=== PATIENT | female | born 1960 | race Caucasian/White ===

== ENCOUNTER 2017-07-05 08:58 | Inpatient (IN) ==
--- NOTE | 2017-07-04 21:43 | Discharge Summary ---
<Oni Lenz - Last Filed: 07/07/17 06:44> Date of Encounter: 07/07/17 - Discharge Diagnosis (1) Morbid obesity with BMI of 50.0-59.9, adult Priority: Secondary Status: Chronic (2) Arthritis of knee, left Priority: Primary Status: Chronic (3) Status post total knee replacement, left Priority: Primary Status: Acute (4) DMII (diabetes mellitus, type 2) Priority: Secondary Status: Chronic Qualifiers: Diabetes mellitus complication status: with unspecified complications Diabetes mellitus halfway insulin use: unspecified halfway insulin use status Qualified Code(s): E11.8 - Type 2 diabetes mellitus with unspecified complications (5) HTN (hypertension) Status: Chronic Qualifiers: Hypertension type: essential hypertension Qualified Code(s): I10 - Essential (primary) hypertension (6) Thyroid disease Priority: Secondary Status: Chronic (7) Kidney injury Priority: Secondary Status: Chronic Qualifiers: Encounter type: sequela Laterality: unspecified laterality Qualified Code (s): S37.009S - Unspecified injury of unspecified kidney, sequela (8) [id number] kidney injury Priority: Primary Status: Acute Qualifiers: Acute renal failure type: unspecified Chronic kidney disease stage: stage 2 (mild) Qualified Code(s): N17.9 - Acute kidney failure, unspecified; N18.2 - Chronic kidney disease, stage 2 (mild) - Discharge Medications Home Medications: Aspirin Enteric Coated [Aspirin EC] 325 mg PO DAILY #21 tablet. 07/04/17 [Rx] OxyCODONE Immed Rel [Roxicodone 5 MG] 5 - 10 mg PO Q6HR PRN #40 tablet 07/04/17 [Rx] Canagliflozin [Invokana] 100 mg PO HS 07/05/17 [History] Diclofenac Sodium [Voltaren] 75 mg PO BID 07/05/17 [History] Famotidine [Pepcid] 20 mg PO BID 07/05/17 [History] Glimepiride [Amaryl] 4 mg PO BID 07/05/17 [History] Insulin Glargine,Hum.rec.anlog [Basaglar Kwikpen U-100] 10 unit SQ HS 07/05/17 [ History] Levothyroxine [Synthroid] 100 mcg PO DAILY 07/05/17 [History] Losartan Potassium [Cozaar] 50 mg PO DAILY 07/05/17 [History] OxyCODONE Oral Soln [OxyCODONE ORAL SOLN] 5 mg PO Q6HR PRN #1 mls 07/05/17 [Rx] Torsemide 10 mg PO DAILY 07/05/17 [History] Allergies/Adverse Reactions: 3 Allergy/AdvReac Type Severity Reaction Status Date / Time codeine Allergy Nose Bleed Verified 07/05/17 10:25 Primary care physician: PCP NONE - Patient Status Disposition: Home Health Service - Discharge Instructions Follow Up With: Oni Lenz MD [Partnered Physician] - 08/04/17 4:05 pm Jocelyn Sanchez PAC [Physician Cell Tender] - 07/15/17 9:15 am (Second followup (staple removal) 07/23/17 @ 8:30am with Ko Sanchez) Additional Instructions: Discharge Instructions: Total Knee Replacement Please call [facility] ([phone]), your Primary Care Physician, or report to the Emergency Room if you have any of the following symptoms: Nausea, vomiting, fever greater that 101.5, swelling, chest pain, shortness of breath, increased pain/redness/drainage/odor for your incision site, numbness/ tingling, or any other concerning symptoms. ACTIVITY:Weight-bearing as tolerated. You may progress off support (crutches or walker) as tolerated. MEDICATIONS: Upon discharge resume your home medications. Take all the medications as prescribed. Take a stool softener if taking narcotic pain medications. Stool softeners are only effective if you drink enough fluids. Drink 6-8 glass of water or fluids a day, unless this is not allowed for another health problem. Despite using stool softeners, if you haven't had a bowel movement in 3 days, please switch to a gentle laxative. Gentle laxatives are sold over the counter. You should have a bowel movement within 24 hours, if not call the office. You will be discharged from the hospital with a prescription for pain medication. You are encouraged to decrease the use of narcotic pain medication as tolerated. Should you require a refill, please call the office. [facility] prescribes narcotic pain medication for only 4-6 weeks after surgery. If you require pain medication beyond this time period, you may be referred to your Primary Care Physician or to the Pain Clinic for further evaluation. Plan ahead for refills on pain medication as many narcotics either need to be picked up at the office or mailed. It is best to call 48-72 hours in advance of needing a prescription refill so you don't run out of medication. To help control the post-operative pain, you may take NSAIDs (Aleve,Advil, Motrin, Ibuprofen, Naprosyn) or Tylenol as prescribed on the bottle in addition to the pain medication. ANTICOAGULATION (blood thinners): Continue your Aspirin, Lovenox or Coumadin as prescribed to help prevent a blood clot in the leg or in the lungs. As long as your incision remains dry and you tolerate the NSAIDs (Aleve, Advil, Motrin, ibuprofen, naprosyn), it is OK to use the NSAIDS while you are taking your anticoagulation medication. Should your incision start to drain, stop the NSAID and contact our office. Common symptoms of blood clot in the legs include: localized pain, swelling, calf tenderness, redness or discoloration of the skin. Blood clot in the lung symptoms include: shortness of breath, rapid pulse, sweating, and chest pain that worsens with deep breathing, coughing up blood, lightheadedness, feelings of anxiety. If you experience any of these symptoms notify your physician immediately, go to the emergency room, or if having trouble breathing, call 911. WOUND CARE: Leave the dressing on for 7 to 10days. You may change the dressing if it becomes saturated greater than 50%. Do not get the dressing wet at anytime. Wash your hands with antibacterial soap, rinse and dry prior to any wound care. If you have carl the visiting nurse or rehab facility can remove the stapes 10-14 days after surgery and place steri-strips across the wound. Leave the steri-strips in place until they fall off on their won. You may let water from the shower run on top of the steri-strips. If you do not have a visiting nurse or rehab facility, you will need to return to the office at 10-14 days for the carl to be removed. If you have itching or redness around the dressing call the office. FOLLOW-UP: Please follow up with your surgeon in the orthopedic clinic in 4 weeks from the day of surgery. If you have carl that need to be removed, you will need to come back to the office in 10-14 days from the day of surgery. - Hospital Course Hospital course: Ms. Weiss is a 56 year old female - Time Spent with Patient Total time spent providing and/or coordinating discharge services: <Jocelyn Sanchez - Last Filed: 07/18/17 20:56> Date of Encounter: 07/18/17 Time of Encounter: 20:56 - Discharge Diagnosis (1) Arthritis of knee, left Priority: Primary Status: Chronic (2) Status post total knee replacement, left Priority: Primary Status: Acute (3) DMII (diabetes mellitus, type 2) Priority: Secondary Status: Chronic Qualifiers: Diabetes mellitus complication status: with unspecified complications Diabetes mellitus termite renewal inspector insulin use: unspecified halfway insulin use status Qualified Code(s): E11.8 - Type 2 diabetes mellitus with unspecified complications (4) HTN (hypertension) Priority: Secondary Status: Chronic Qualifiers: Hypertension type: essential hypertension Qualified Code(s): I10 - Essential (primary) hypertension (5) Obesity Priority: Secondary Status: Chronic Qualifiers: Obesity type: due to excess calories Obesity classification: adult class 3 (BMI >= 40) Serious obesity comorbidity presence: without serious comorbidity Body mass index: unspecified BMI Qualified Code(s): E66.09 - Other obesity due to excess calories (6) Thyroid disease Priority: Secondary Status: Chronic (7) Kidney injury Priority: Secondary Status: Chronic Qualifiers: Encounter type: sequela Laterality: unspecified laterality Qualified Code (s): S37.009S - Unspecified injury of unspecified kidney, sequela Primary care physician: PCP NONE - Hospital Course Hospital course: Ms. Weiss is a 56 year old female - Time Spent with Patient Total time spent providing and/or coordinating discharge services:
[2017-07-05] MEDS ORDERED: CeFAZolin Pre 3,000 MG/100 ML 3,000 MG/100 ML BAG IVPB ONE (09:29)
[2017-07-05] MEDS ORDERED: Lidocaine -MPF 1% 2 ML VIAL ID ONE (09:29)
[2017-07-05] MEDS ORDERED: Ringers Solution, Lactated 1,000 ML IVC SCH ×3 (09:30→14:34)
--- NOTE | 2017-07-05 09:46 | Anesthesia Evaluation PreOp ---
Date of Encounter: 07/05/17 Time of Encounter: 09:44 - Past History Planned Operation: Left Total Knee Artroplasty Cardiac History: Denies any Significant Hx Pulmonary History: Denies Any Significant HX FINANCIAL AID ADMINISTRATOR History: Denies Any Significant HX Other Medical History: Diabetes Type II, Thyroid (Hypothyroid) Anesthesia History: No Prior Anesthetic Complications, Past Anesthesia (Steve. [facility] , Gastric Bypass, Toe sx) : No Test: Negative Alcohol Use: none Drug use: none Medications and Allergies Aspirin Enteric Coated [Aspirin EC] 325 mg PO DAILY #21 tablet.dr 07/04/17 [Rx] OxyCODONE Immed Rel [Roxicodone 5 MG] 5 - 10 mg PO Q6HR PRN #40 tablet 07/04/17 [Rx] 3 Allergy/AdvReac Type Severity Reaction Status Date / Time codeine Allergy Nose Bleed Verified 06/29/17 10:25 - Meds/Allergy Pre-op Review Medications Reviewed: Yes Allergies Reviewed: Yes Anesthesia Results - Labs Laboratory Tests 06/29/17 06/29/17 06/29/17 10:38 10:38 10:38 WBC 7.5 Hgb 13.8 Hct 44.8 Plt Count 268 INR 1.0 Sodium 144 Potassium 4.6 H Chloride 107 Carbon Dioxide 28 BUN 40 H Creatinine 1.44 H Hemoglobin A1c 06/29/17 10:38 WBC Hgb Hct Plt Count INR Sodium Potassium Chloride Carbon Dioxide BUN Creatinine Hemoglobin A1c 7.4 H - Imaging EKG: image reviewed (SINUS RHYTHM LOW QRS VOLTAGE IN PRECORDIAL LEADS POSSIBLE ANTERIOR MYOCARDIAL INFARCTION, PROBABLY OLD) Anesthesia Exam O2 Sat Height 1.68 m Height 1.68 m Height 1.68 m Weight 154.221 kg Weight 154.221 kg Weight 154.221 kg O2 Sat by Pulse Oximetry 96 O2 Sat by Pulse Oximetry 96 Vital Signs Temp Pulse Resp BP Pulse Ox 98.2 F 90 18 146/73 96 07/05/17 09:34 07/05/17 09:34 07/05/17 09:34 07/05/17 09:34 07/05/17 09:34 Height: 5'6'' Weight: 340# NPO (# of Hours): > 8 hrs Pain Scale: 0 - HEENT Pupil (Motor): Pupils equal, EOMI Mallampati: III Teeth: Prosthesis (Upper Right posterior molar with loose Cap) Oral Opening: Greater than 3 - FINANCIAL AID ADMINISTRATOR LOC: Oriented FINANCIAL AID ADMINISTRATOR Motor: Normal RUE, Normal LUE, Normal RLE, Normal LLE, Normal Face FINANCIAL AID ADMINISTRATOR Sensory: Normal: RUE, LUE, RLE, LLE, Face - Cardiac Rhythm: Regular Murmur: None JVD: No Carotid Bruit: No - Pulmonary Breath Sounds: bilateral Clear Respiratory Effort: Symmetrical Anesthesia Assess/Plan ASA Score: 4 Modified [place] Scale for Level of Consciousness: Cooperative, oriented, and tranquil Anesthetic Plan: General, Regional (Left Fem. nerve Block) Autologous Blood: Yes Monitoring Plan: Standard Monitors Recovery Plan: PACU
[2017-07-05] MEDS ORDERED: *HR* FentaNYL (PF) 100 MCG/2 ML VIAL ONE ×2 (09:57→11:51)
[2017-07-05] MEDS ORDERED: *HR* Midazolam HCl 2 MG/2 ML VIAL ONE (09:57)
[2017-07-05] MEDS ORDERED: Dexamethasone 4 MG/ML VIAL ONE (09:57)
[2017-07-05] MEDS ORDERED: Lidocaine -MPF 2% 2 ML VIAL ONE (09:57)
[2017-07-05] MEDS ORDERED: Ondansetron 4 MG/2 ML VIAL ONE (09:57)
[2017-07-05] MEDS ORDERED: *HR* Propofol 200 MG/20 ML VIAL IVP ONE (09:58)
[2017-07-05] MEDS ORDERED: *HR* Meperidine 25 MG/ML SYRINGE IVP PRN (10:03)
[2017-07-05] MEDS ORDERED: *HR* HYDROmorphone (PF) 1 MG/ML SYRINGE IVP PRN ×2 (10:03→14:34)
[2017-07-05] MEDS ORDERED: Ondansetron 4 MG/2 ML VIAL IVP ONE (10:03)
[2017-07-05] MEDS ORDERED: *HR* Promethazine 25 MG/ML VIAL IVP PRN (10:03)
[2017-07-05] MEDS ORDERED: *HR* Labetalol 20 MG/4 ML SYRINGE IVP PRN (10:03)
[2017-07-05] MEDS ORDERED: Scopolamine Patch 1.5 MG PATCH.TD72 TD ONE (10:12)
--- NOTE | 2017-07-05 10:26 | History & Physical Report ---
Date of Encounter: 07/05/17 Time of Encounter: 10:25 24 Hour HP Update - Instructions Instructions: If the History and Physical is less than 30 days old and was completed prior to A.M. admission and or procedure and has NOT been updated on calendar day of procedure please complete this update prior to performing procedure. - Update Patient reports changes in Medical Condition: No Changes in examination, assessment, or condition: No Changes in Medication: No Preop tests/diagnostics Reviewed: Yes Surgery Remains Indicated: Yes Consent for Planned Operative Procedure(s) Verified: Yes - Pre-Operative Checklist Preoperative Checklist Indicated: No Prophylactic Antibiotic Ordered: Yes Is VTE Prophylaxis Indicated?: Yes
[2017-07-05] MEDS ORDERED: ROPIVACAINE HCL/PF 0.5% 30 ML VIAL ONE (10:53)
--- NOTE | 2017-07-05 11:18 | Anesthesia Procedures ---
Date of Encounter: 07/05/17 Time of Encounter: 11:11 Procedures: Anesthesia - Nerve Block Procedure Date: 07/05/17 Time: 11:11 Surgical Procedure: left total knee Checklist: Correct Patient Identifier, Correct procedure, History checked Correct side: Left Blood Thinner: No Monitor Applied: BP, Pulse Oximetry Supplemental Oxygen via Nasal Cannula (L/min): 2 Sedation: Versed (mg): 2 Sedation: Fentanyl (mcg): 100 Indication: Post Op Analgesia Pre-op Neuro Deficits: No Block Type: Femoral, Other (ipack) Catheter placed: No Sterile Technique: Yes Ultrasound used: Yes Anatomy identified: Yes Visual spread of Local: Yes Neuro Stimulation: Yes Nerve Stimulator Range: 0.2 - 0.4 mA Blood on Needle Aspiration: No Smooth Injection of Local: Yes Pain with Injection of Local: No Prep: Chlorhexadine Needle: 22 x 50 mm Stimuplex, 21 x 100 mm Stimuplex Local: Ropivacaine (30ml 0.5%), Other (30ml 0.25% rop ) Volume (cc): 60 Number of Attempts: 1 Complications: None/effective block Vitals: vss though out, block per request of surgeon.
--- NOTE | 2017-07-05 12:27 | Orthopedic Operative Note ---
Date of procedure: 07/05/17 Pre-op diagnosis: Knee arthritis left Post-op diagnosis: same Procedure: Procedure: Left Total knee replacement Estimated blood loss: 400 cc Hardware: Metal and polyethylene replacement: Biomet Femur: 75, 18 x 120 Tibia: 79, 12 x 40 Dee insert: 10 Patella: 37 Exam Under anesthesia: Loss full extension 10 degrees flexion 90 degrees Procedural Notes: Grade 4 arthritic changes medial compartment and patellofemoral joint. Operative procedure: The patient was brought to the operating room and placed on the operating room table. After general anesthesia was administered the operative knee was examined. Findings were noted in the exam under anesthesia. The operative extremity was prepped and draped in sterile surgical fashion. The patient received IV antibiotics prior to skin incision. A standard midline incision was made centered over the patella. The incision was made through the skin and subcutaneous tissue. A medial parapatellar tendon approach was performed. Care was taken to preserve tissue along the medial aspect of the patella. And to protect the patella tendon. The deep MCL was released off the medial tibia. The infra patella fat pad was excised. Knee was brought into flexion. Patient noted to have grade 4 arthritic changes medial compartment and patellofemoral joint. The entry hole was made for the intramedullary femoral guide. The guide was seated in 6 degrees of valgus. Anterior cut was made followed by the distal cut. The PCL the medial and the lateral menisci were excised. The tibia was subluxed forward. The entry hole was made for the intramedullary tibial guide. Guide was seated to resect 2 mm off the more abnormal side. The knee was brought into flexion the distal femur was sized to a 75 The femur was first reamed to a 18 x 120 The femoral guide was seated, the anterior cut was made followed by the posterior condylar cut, followed by the chamfer cuts. The finishing guide was seated the box cut was made. Trial had good fit and fixation The tibia was sized to a an 79 The tibia was first reamed Younger by 40 Trial reduction revealed full extension no varus valgus instability with the appropriate X insert. The patella was everted and cut was made at the level of the insertion of the quadriceps and patella tendon. The patella was sized to a 37 the guide was seated and the lug holes are drilled. Trial reduction revealed excellent patella tracking. All trial components were removed all bony surfaces were irrigated. Components were assembled on the back table. The femur was cemented first followed by the tibia. The 10 Dee was seated and secured. The knee was brought into full extension. The patella was cemented and held in place with the patellar holding clamp. After the cement had hardened, the knee sat for 2 minutes with a Betadine saline solution. The knee was then irrigated out with 2 L of pulse irrigation. The knee was closed by the PA. The extensor mechanism was closed with #2 FiberWire suture and #2 PDS suture. The subcutaneous tissue was then irrigated and closed deep with #1 PDS suture superficially with 0 PDS suture and skin was closed with skin carl The patient was then placed in a sterile dressing and a postoperative brace extubated and transferred to recovery room in stable condition. Anesthesia: JAREK Surgeon: Oni Lenz Geotechnical Field Technician: Lesvia Bone Condition: stable Disposition: PACU
--- NOTE | 2017-07-05 12:44 | Physician Discharge Referral ---
Home Health/Hosp Referral Info Transfer to: Home Health Provider in Charge Post Discharge: PCP - Diagnosis (1) Arthritis of knee, left Priority: Primary Status: Chronic (2) Status post total knee replacement, left Priority: Primary Status: Acute (3) DMII (diabetes mellitus, type 2) Priority: Secondary Status: Chronic (4) HTN (hypertension) Priority: Secondary Status: Chronic (5) Obesity Priority: Secondary Status: Chronic (6) Thyroid disease Priority: Secondary Status: Chronic (7) Kidney injury Priority: Secondary Status: Chronic (8) History of gastric bypass Priority: Secondary Status: Chronic - Respiratory Orders None Smoking Cessation: Smoking cessation has been advised. For more information, call the [place] Tobacco Quit Line at 4-227-CDCH-NOW. - Diet/Nutrition Diet/Nutrition Orders: Regular - Activity Activity Orders: Up ad hortencia, Ambulate, Walker - Services Needed Following services are medically necessary services: Nursing, Home Health Aide, Physical Therapy, Occupational Therapy Home Care Orders: Opsite placed. Keep dressing intact until first follow up appointment. If > 50% saturated,notify offfice, remove dressing and place appropriate dressing back in place. Dressing is water resistant, not water-proof. OK to shower, but do not get dressing wet. Zoë in place, to be removed at POD#14-16. PT/OT. WBAT to affected extremity. Follow Total Knee Precautions x 6 weeks. STAY IN KNEE IMMOBILIZER X 3 WEEKS, NO BENDING KNEE TO ALLOW WOUND TO HEAL. Plan to discontinue brace after first post-operative appointment. ICE and elevate extremity frequently throughout the day. Encourage ambulation exercises. - Transfer Medications Prescriptions: OxyCODONE Immed Rel [Roxicodone 5 MG] 5 - 10 mg PO Q6HR PRN #40 tablet PRN Reason: Pain Aspirin Enteric Coated [Aspirin EC] 325 mg PO DAILY #21 tablet. Home Medications: Aspirin Enteric Coated [Aspirin EC] 325 mg PO DAILY #21 tablet. 07/04/17 [Rx] OxyCODONE Immed Rel [Roxicodone 5 MG] 5 - 10 mg PO Q6HR PRN #40 tablet 07/04/17 [Rx] Canagliflozin [Invokana] 100 mg PO HS 07/05/17 [History] Diclofenac Sodium [Voltaren] 75 mg PO BID 07/05/17 [History] Famotidine [Pepcid] 20 mg PO BID 07/05/17 [History] Glimepiride [Amaryl] 4 mg PO BID 07/05/17 [History] Insulin Glargine,Hum.rec.anlog [Basaglar Kwikpen U-100] 10 unit SQ HS 07/05/17 [ History] Levothyroxine [Synthroid] 100 mcg PO DAILY 07/05/17 [History] Losartan Potassium [Cozaar] 50 mg PO DAILY 07/05/17 [History] Torsemide 10 mg PO DAILY 07/05/17 [History] Allergies/Adverse Reactions: 3 Allergy/AdvReac Type Severity Reaction Status Date / Time codeine Allergy Nose Bleed Verified 07/05/17 10:25 Certification: Further, I certify that my clinical findings support that this patient is homebound (i.e. absences from home require considerable and taxing effort and are for medical reasons or evangelical services or infrequently or short duration when for other reasons) because: Homebound Reason: Post-surgery restriction and or conditions limit ability to leave home Attestation: My signature below is to certify that this patient is under my care and that I, or nurse practitioner, or a physician's assistant infant toddler teacher working with me, has a face-to -face encounter with this patient.
[2017-07-05] MEDS ORDERED: Acetaminophen IV 1,000 MG/100 ML INFUS..BTL ONE (13:06)
[2017-07-05 13:35] LABS: Hematocrit 39.6 % (35.3-44.9); Hemoglobin 12.4 g/dL (11.5-15.4)
--- NOTE | 2017-07-05 13:56 | Anesthesia Evaluation Post Op ---
Date of Encounter: 07/05/17 Time of Encounter: 13:52 - Vital Signs Vital Signs: vss - Lungs Lungs: Clear Ascult./Percussion - Airway Airway: Non-obstructed - Cardiovascular Baseline Rhythm - Mental Status Mental Status: Asleep with brisk response to light stimulation (patient sleeping with no distress noted) - Pain Pain Scale used: Joey (Faces) (okay to send to floor when pain is tolerable) - Nausea Vomiting Nausea Vomiting: Not Present - Hydration Hydration: Ice chips - Discharge PostOp Status: Transfer Patient to floor (on pulse ox.)
[2017-07-05] MEDS ORDERED: *HR* Dextrose 50 % in Water (Syg) 50 ML SYRINGE IVP PRN (14:34)
[2017-07-05] MEDS ORDERED: Dextrose Gel 15 GM PO PRN ×2 (14:34)
[2017-07-05] MEDS ORDERED: D5% in Water 1,000 ML IVC PRN (14:34)
[2017-07-05] MEDS ORDERED: Ondansetron 4 MG/2 ML VIAL IVP PRN (14:34)
[2017-07-05] MEDS ORDERED: Naloxone 0.4 MG/ML INJ IVP PRN (14:34)
[2017-07-05] MEDS ORDERED: *HR* HYDROmorphone 2 MG/ML SYRINGE ONE ×2 (14:37)
[2017-07-05] MEDS ORDERED: Ketorolac 30 MG/ML VIAL ONE (14:38)
[2017-07-05] MEDS: ceFAZolin 3,000 MG in D5% in Water 100 ML IVPB SCH (17:15)
[2017-07-05] MEDS: *HR* Enoxaparin 30 MG/0.3 ML SYRINGE SQ SCH (17:15)
[2017-07-05] MEDS: Insulin LISPRO 300 UNITS/3 ML VIAL SQ SCH ×3 (17:16→21:47)
[2017-07-05] MEDS ORDERED: *HR* Enoxaparin 30 MG/0.3 ML SYRINGE SQ SCH (18:00)
[2017-07-05] MEDS ORDERED: Temazepam 15 MG CAPSULE PO PRN (21:00)
[2017-07-05] MEDS ORDERED: NON-FORMULARY MEDICATION 1 EACH EACH (Insulin Glargine,Hum.Rec.Anlog [Basaglar Kwikpen U-1 SQ SCH (21:00)
[2017-07-05] MEDS ORDERED: MOM Conc 10 ML UD.LIQ PO PRN (21:00)
[2017-07-05] MEDS ORDERED: Sennosides 8.6 MG TABLET PO PRN (21:00)
[2017-07-05] MEDS: *HR* Glimepiride 4 MG TABLET PO SCH (21:42)
[2017-07-05] MEDS: Famotidine 20 MG TABLET PO SCH (21:42)
[2017-07-05] MEDS: Diclofenac Sodium 75 MG TABLET PO SCH (21:42)
[2017-07-05] MEDS: (Canagliflozin [Invokana] 100 MG) PO SCH (21:45)
[2017-07-05] MEDS: *HR* OxyCODONE Immed Rel 5 MG TABLET PO PRN (21:53)
[2017-07-05] MEDS: Insulin DETEMIR 100 UNIT/ML X5UNITS SQ SCH (21:59)
[2017-07-06] MEDS: *HR* OxyCODONE Immed Rel 5 MG TABLET PO PRN ×2 (03:17→19:26)
[2017-07-06] MEDS: ceFAZolin 3,000 MG in D5% in Water 100 ML IVPB SCH (03:34)
[2017-07-06] MEDS: *HR* Enoxaparin 30 MG/0.3 ML SYRINGE SQ SCH ×2 (05:39→16:49)
--- NOTE | 2017-07-06 06:45 | Orthopedics Progress Note ---
Date of Encounter: 07/06/17 Time of Encounter: 06:45 - Assessment and Plan (1) Morbid obesity with BMI of 50.0-59.9, adult Current Visit: Yes Status: Chronic (2) Arthritis of knee, left Current Visit: Yes Status: Chronic (3) Status post total knee replacement, left Current Visit: Yes Status: Acute (4) DMII (diabetes mellitus, type 2) Current Visit: Yes Status: Chronic Qualifiers: Diabetes mellitus complication status: with unspecified complications Diabetes mellitus terminal system operator insulin use: unspecified terminal system operator insulin use status Qualified Code(s): E11.8 - Type 2 diabetes mellitus with unspecified complications (5) HTN (hypertension) Current Visit: Yes Status: Chronic Qualifiers: Hypertension type: essential hypertension Qualified Code(s): I10 - Essential (primary) hypertension (6) Thyroid disease Current Visit: Yes Status: Chronic (7) Kidney injury Current Visit: Yes Status: Chronic Qualifiers: Encounter type: sequela Laterality: unspecified laterality Qualified Code (s): S37.009S - Unspecified injury of unspecified kidney, sequela Subjective Interval history: Patient was seen this morning doing well without complaints. Afebrile vital signs stable. Operative extremity: Neurovascularly intact Dressing clean dry and intact Calves nontender Assessment and plan: Continue with postoperative care Hematocrit 39 Objective Vital signs: Vital Signs Temp Pulse Resp BP Pulse Ox 07/06/17 05:05 98.0 F 89 16 122/55 94 07/06/17 00:39 97.8 F 101 16 121/75 99 07/05/17 19:28 98.6 F 81 18 142/64 95 07/05/17 17:29 98.0 F 81 16 138/79 94 07/05/17 16:23 98.1 F 86 16 148/81 95 07/05/17 15:25 97.7 F 78 15 111/77 94 07/05/17 14:51 97.7 F 78 15 111/75 93 07/05/17 14:20 97.6 F 78 13 124/75 94 07/05/17 13:55 97.1 F L 73 16 137/71 94 07/05/17 13:45 97 F L 70 16 118/57 94 07/05/17 13:35 70 16 136/73 95 07/05/17 13:25 73 16 140/81 97 07/05/17 13:15 97.1 F L 76 20 123/64 98 07/05/17 11:10 76 16 125/64 94 07/05/17 10:50 81 18 155/70 97 07/05/17 10:48 98.2 F 90 18 146/73 96 07/05/17 09:42 98.2 F 90 18 146/73 96 07/05/17 09:34 98.2 F 90 18 146/73 96 Intake and Output 07/05/17 07/05/17 07/06/17 15:59 23:59 07:59 Intake Total 100 / 100 100 / 100 Output Total 500 / 500 0 / 0 Balance -400 / -400 100 / 100 0 / 0 Intake: IV Fluids 100 / 100 100 / 100 Ancef Premix 3,000 MG/100 100 / 100 ML 3,000 mg In 100 ml @ 200 mls/hr IVPB PREOP ONE Rx#:[id number] Ancef 3,000 MG In 100 / 100 Dextrose 5% 100 ML @ 200 mls/hr IVPB Q8HR ASHER Rx#: [id number] Output: Urine 0 / 0 Estimated Blood Loss 500 / 500 Other: # Voids 1 1 Weight 154.221 kg 154.78 kg Blood Glucose* 162 274 Patient Weight 07/06/17 23:59 Weight 154.78 kg - Labs CBC & BMP: 07/05/17 13:29 Labs: Abnormal lab results POC Glucose 237 (58-89) H 07/05/17 16:52 - VTE Documentation of Mechanical Device: Venous foot pump, device Consult Discharge Plan - Plan Referrals: NONE,PCP [Primary Care Provider] -
[2017-07-06 08:11] LABS: Calcium 8.5 mg/dL (8.6-10.8); Potassium 3.3 mEq/L (3.5-4.5)
[2017-07-06 08:12] LABS: Hematocrit 35.8 % (35.3-44.9); Hemoglobin 11.2 g/dL (11.5-15.4)
[2017-07-06] MEDS: Insulin LISPRO 300 UNITS/3 ML VIAL SQ SCH ×4 (09:14→22:01)
[2017-07-06] MEDS: Diclofenac Sodium 75 MG TABLET PO SCH ×2 (09:15→22:05)
[2017-07-06] MEDS: *HR* Glimepiride 4 MG TABLET PO SCH ×2 (09:15→22:06)
[2017-07-06] MEDS: Famotidine 20 MG TABLET PO SCH ×2 (09:15→22:06)
[2017-07-06] MEDS: Torsemide 20 MG TABLET PO SCH (09:15)
--- NOTE | 2017-07-06 12:01 | Event Note ---
Date of Encounter: 07/06/17 Time of Encounter: 11:58 PCR - Left TKR 07/06/17 - POD#1 Patient seen at bedside. Cormorbidities: DMII, Obesity - history of gastric bypass, HTN, Kidney function/ injury Labs: K 3.3 - monitoring Cre - 1.63 07/06/17 Baseline: 1.44 Baseline: GFR 38 Pain control: adequate - Allergy to Codeine - ok with Oxycodone *Requested liquid Oxycodone for discharge - this was printed and signed but I did inform patient she may have cost due to insurance. Participating in PT. TSCOPE brace, locked in extension x 2-4 weeks. No knee flexion to allow incision to heal* All questions and concerns addressed. Educated on use of incentive spirometer, ambulation, and hydration. Patient educated on post-operative restrictions and care. Addressed: Pain, Tscope restrictions 07/06/17 - Bolus given, encouraged oral hydration - continue to monitor labs and kidney function D/C plan: ECF - continuity placed.
[2017-07-06] MEDS ORDERED: 0.9 % Sodium Chloride 500 ML IVC ONE (12:08)
--- NOTE | 2017-07-06 17:23 | Physician Discharge Referral ---
ExtendedCare Referral Info Transfer To: ECF Provider in Charge after Transfer: PCP Institutional Level of Care: Skilled - Diagnosis (1) Arthritis of knee, left Priority: Primary Status: Chronic (2) Status post total knee replacement, left Priority: Primary Status: Acute (3) DMII (diabetes mellitus, type 2) Priority: Secondary Status: Chronic (4) HTN (hypertension) Priority: Secondary Status: Chronic (5) Obesity Priority: Secondary Status: Chronic (6) Thyroid disease Priority: Secondary Status: Chronic (7) Kidney injury Priority: Secondary Status: Chronic Expected Duration of Placement: < 30 days Prognosis: Good Aware of Diagnosis: Patient Aware of Prognosis: Patient - Transfer Medications Home Medications: Aspirin Enteric Coated [Aspirin EC] 325 mg PO DAILY #21 tablet. 07/04/17 [Rx] OxyCODONE Immed Rel [Roxicodone 5 MG] 5 - 10 mg PO Q6HR PRN #40 tablet 07/04/17 [Rx] Canagliflozin [Invokana] 100 mg PO HS 07/05/17 [History] Diclofenac Sodium [Voltaren] 75 mg PO BID 07/05/17 [History] Famotidine [Pepcid] 20 mg PO BID 07/05/17 [History] Glimepiride [Amaryl] 4 mg PO BID 07/05/17 [History] Insulin Glargine,Hum.rec.anlog [Basaglar Kwikpen U-100] 10 unit SQ HS 07/05/17 [ History] Levothyroxine [Synthroid] 100 mcg PO DAILY 07/05/17 [History] Losartan Potassium [Cozaar] 50 mg PO DAILY 07/05/17 [History] OxyCODONE Oral Soln [OxyCODONE ORAL SOLN] 5 mg PO Q6HR PRN #1 mls 07/05/17 [Rx] Torsemide 10 mg PO DAILY 07/05/17 [History] Allergies/Adverse Reactions: 3 Allergy/AdvReac Type Severity Reaction Status Date / Time codeine Allergy Nose Bleed Verified 07/05/17 10:25 - Respiratory Orders None Smoking Cessation: Smoking cessation has been advised. For more information, call the [place] Tobacco Quit Line at 8-385-FEYX-NOW. - Ancillary Orders May use pressure relief devices daily prn, May go on KIKA w/family/respon green party w /meds at nurse discretion PRN, May consult with Dentist, Pediatric Care Coordinator, Burglary Investigator PRN - Mobility Orders Chair, Ambulate - Rehabiliation Orders Rehab Potential: Good Rehab Orders: Sternal Precautions, ROM Exercises, Evaluation for Physical Therapy, Evaluation for Occupational Therapy Other: Wear knee immobilizer at all times x 3-4 weeks. No knee flexion WBAT - Treatments List/Other: Opsite dressing, leave intact until first post-operative visit. If dressing becomes >50% saturated, contact office, remove dressing and place appropriate dressing in its place. Do not allow for dressing to get wet. Zoë in place, plan to remove at post-operative day #14-16. Total Joint Precautions x 6 weeks Apply cold therapy wrap 3-6x/day for 20 minutes at a time. Encourage ambulation throughout the day Use Incentive spirometer 10x/hour. Elevate affected extremity above heart as tolerated. Brace: Wear TCOPE brace x 3-4 weeks, no knee flexion* WBAT. - Diet Orders Regular CERTIFICATION: I certify that the transfer of the above named patient to an Extended Care Facility is necessary for the continuing treatment of the diagnosis listed. The above information is true and accurate reflection of patient's current condition. Confidential - Redisclosure prohibited without a patient's written consent.
[2017-07-06] MEDS: Insulin DETEMIR 100 UNIT/ML X5UNITS SQ SCH (22:06)
[2017-07-06] MEDS: (Canagliflozin [Invokana] 100 MG) PO SCH (22:49)
[2017-07-07] MEDS: *HR* OxyCODONE Immed Rel 5 MG TABLET PO PRN ×3 (04:30→21:27)
[2017-07-07 06:34] LABS: Hematocrit 33.6 % (35.3-44.9); Hemoglobin 10.7 g/dL (11.5-15.4)
[2017-07-07 06:36] LABS: BUN/Creatinine Ratio 25 (6-26); Blood Urea Nitrogen 27 mg/dL (7-20); Calcium 8.6 mg/dL (8.6-10.8); Carbon Dioxide 27 mEq/L (19-29); Chloride 106 mEq/L (98-109); Glucose 154 mg/dL (70-99); Osmolality,Calculated 300 (280-300); Potassium 3.5 mEq/L (3.5-4.5); Sodium 141 mEq/L (136-145); eGFR For African Americans > 60 (> 60); eGFR For Non-African Americans 52 (> 60)
--- NOTE | 2017-07-07 06:46 | Orthopedics Progress Note ---
Date of Encounter: 07/07/17 Time of Encounter: 06:45 - Assessment and Plan (1) Morbid obesity with BMI of 50.0-59.9, adult Current Visit: Yes Status: Chronic (2) Arthritis of knee, left Current Visit: Yes Status: Chronic (3) Status post total knee replacement, left Current Visit: Yes Status: Acute (4) DMII (diabetes mellitus, type 2) Current Visit: Yes Status: Chronic Qualifiers: Diabetes mellitus complication status: with unspecified complications Diabetes mellitus intermodal truck driver insulin use: unspecified intermodal truck driver insulin use status Qualified Code(s): E11.8 - Type 2 diabetes mellitus with unspecified complications (5) HTN (hypertension) Current Visit: Yes Status: Chronic Qualifiers: Hypertension type: essential hypertension Qualified Code(s): I10 - Essential (primary) hypertension (6) Thyroid disease Current Visit: Yes Status: Chronic (7) Kidney injury Current Visit: Yes Status: Chronic Qualifiers: Encounter type: sequela Laterality: unspecified laterality Qualified Code (s): S37.009S - Unspecified injury of unspecified kidney, sequela (8) Arybg-je-bhenjmn kidney injury Current Visit: Yes Status: Acute Qualifiers: Acute renal failure type: unspecified Chronic kidney disease stage: stage 2 (mild) Qualified Code(s): N17.9 - Acute kidney failure, unspecified; N18.2 - Chronic kidney disease, stage 2 (mild) Subjective Interval history: Patient was seen this morning doing well without complaints. Afebrile vital signs stable. Operative extremity: Neurovascularly intact Dressing clean dry and intact Calves nontender Assessment and plan: Continue with postoperative care Hematocrit 33 creatinine 1.09 improving Objective Vital signs: Vital Signs Temp Pulse Resp BP Pulse Ox 07/07/17 04:05 97.8 F 93 20 129/77 93 07/07/17 00:56 98.3 F 88 16 128/63 93 07/06/17 20:38 98.1 F 77 18 124/60 95 07/06/17 19:01 98.5 F 84 18 116/70 94 07/06/17 15:51 98.4 F 79 15 126/68 97 07/06/17 12:07 99.6 F 87 15 103/61 96 07/06/17 07:46 98.1 F 87 16 134/68 97 Intake and Output 07/06/17 07/06/1717 15:59 23:59 07:59 Intake Total 218 / 218 480 / 480 Output Total 125 / 125 0 / 0 225 / 225 Balance 93 / 93 480 / 480 -225 / -225 Intake: Oral 218 / 218 480 / 480 Output: Urine 125 / 125 0 / 0 225 / 225 Other: Meal Lunch Percent of Meal Consumed 50% Blood Glucose* 153 168 - Labs CBC & BMP: 07/07/17 05:08 07/07/17 05:08 Labs: Abnormal lab results Hgb 10.7 g/dL (11.5-15.4) L 07/07/17 05:08 Hct 33.6 % (35.3-44.9) L 07/07/17 05:08 BUN 27 mg/dL (7-20) H 07/07/17 05:08 Est GFR (Non-Af Amer) 52 (> 60) L 07/07/17 05:08 Glucose 154 mg/dL (70-99) H 07/07/17 05:08 POC Glucose 124 (58-89) H 07/06/17 17:40 - VTE Documentation of Mechanical Device: Venous foot pump, device Consult Discharge Plan - Plan Additional Instructions: Discharge Instructions: Total Knee Replacement Please call [facility] ([phone]), your Primary Care Physician, or report to the Emergency Room if you have any of the following symptoms: Nausea, vomiting, fever greater that 101.5, swelling, chest pain, shortness of breath, increased pain/redness/drainage/odor for your incision site, numbness/ tingling, or any other concerning symptoms. ACTIVITY:Weight-bearing as tolerated. You may progress off support (crutches or walker) as tolerated. MEDICATIONS: Upon discharge resume your home medications. Take all the medications as prescribed. Take a stool softener if taking narcotic pain medications. Stool softeners are only effective if you drink enough fluids. Drink 6-8 glass of water or fluids a day, unless this is not allowed for another health problem. Despite using stool softeners, if you haven't had a bowel movement in 3 days, please switch to a gentle laxative. Gentle laxatives are sold over the counter. You should have a bowel movement within 24 hours, if not call the office. You will be discharged from the hospital with a prescription for pain medication. You are encouraged to decrease the use of narcotic pain medication as tolerated. Should you require a refill, please call the office. [facility] prescribes narcotic pain medication for only 4-6 weeks after surgery. If you require pain medication beyond this time period, you may be referred to your Primary Care Physician or to the Pain Clinic for further evaluation. Plan ahead for refills on pain medication as many narcotics either need to be picked up at the office or mailed. It is best to call 48-72 hours in advance of needing a prescription refill so you don't run out of medication. To help control the post-operative pain, you may take NSAIDs (Aleve,Advil, Motrin, Ibuprofen, Naprosyn) or Tylenol as prescribed on the bottle in addition to the pain medication. ANTICOAGULATION (blood thinners): Continue your Aspirin, Lovenox or Coumadin as prescribed to help prevent a blood clot in the leg or in the lungs. As long as your incision remains dry and you tolerate the NSAIDs (Aleve, Advil, Motrin, ibuprofen, naprosyn), it is OK to use the NSAIDS while you are taking your anticoagulation medication. Should your incision start to drain, stop the NSAID and contact our office. Common symptoms of blood clot in the legs include: localized pain, swelling, calf tenderness, redness or discoloration of the skin. Blood clot in the lung symptoms include: shortness of breath, rapid pulse, sweating, and chest pain that worsens with deep breathing, coughing up blood, lightheadedness, feelings of anxiety. If you experience any of these symptoms notify your physician immediately, go to the emergency room, or if having trouble breathing, call 911. WOUND CARE: Leave the dressing on for 7 to 10days. You may change the dressing if it becomes saturated greater than 50%. Do not get the dressing wet at anytime. Wash your hands with antibacterial soap, rinse and dry prior to any wound care. If you have carl the visiting nurse or rehab facility can remove the stapes 10-14 days after surgery and [address] steri-strips across the wound. Leave the steri-strips in place until they fall off on their won. You may let water from the shower run on top of the steri-strips. If you do not have a visiting nurse or rehab facility, you will need to return to the office at 10-14 days for the carl to be removed. If you have itching or redness around the dressing call the office. FOLLOW-UP: Please follow up with your surgeon in the orthopedic clinic in 4 weeks from the day of surgery. If you have carl that need to be removed, you will need to come back to the office in 10-14 days from the day of surgery. Referrals: Oni Lenz MD [Partnered Physician] - 08/04/17 4:05 pm Jocelyn Sanchez PAC [Physician Pie Maker] - 07/15/17 9:15 am (Second followup (staple removal) 07/23/17 @ 8:30am with Ko Sanchez)
[2017-07-07] MEDS: *HR* Enoxaparin 30 MG/0.3 ML SYRINGE SQ SCH ×2 (06:53→16:50)
[2017-07-07] MEDS: Diclofenac Sodium 75 MG TABLET PO SCH ×2 (08:22→21:27)
[2017-07-07] MEDS: Cholecalciferol (D-3) 1,000 UNIT TABLET PO SCH (08:22)
[2017-07-07] MEDS: Torsemide 20 MG TABLET PO SCH (08:22)
[2017-07-07] MEDS: *HR* Glimepiride 4 MG TABLET PO SCH ×2 (08:23→21:28)
[2017-07-07] MEDS: Famotidine 20 MG TABLET PO SCH ×2 (08:23→21:28)
[2017-07-07] MEDS: Insulin LISPRO 300 UNITS/3 ML VIAL SQ SCH ×4 (08:24→21:28)
--- NOTE | 2017-07-07 11:45 | Event Note ---
Date of Encounter: 07/07/17 Time of Encounter: 12:42 PCR - Left TKR 07/05/17 - POD#2 Patient seen at bedside. Cormorbidities: DMII, Obesity - history of gastric bypass, HTN, Kidney function/ injury Labs: K 3.3 - monitoring Cre - 1.63 07/06/17 Baseline: 1.44 Baseline: GFR 38 07/07/17 GFR 52 SCr 1.09 K 3.5 Pain control: adequate - Allergy to Codeine - ok with Oxycodone *Requested liquid Oxycodone for discharge - this was printed and signed but I did inform patient she may have cost due to insurance (MORRO ORONA-07/06/17). Participating in PT. Immobilizer - patient refusing Tscope stating it does not fit ---- locked in extension x 2-4 weeks. No knee flexion to allow incision to heal* All questions and concerns addressed. Educated on use of incentive spirometer, ambulation, and hydration. Patient educated on post-operative restrictions and care. Addressed: Pain, Tscope (Immobilizer) restrictions 07/06/17 - Bolus given, encouraged oral hydration - continue to monitor labs and kidney function -- Renal function improved today on labwork 07/07/17 D/C plan: ECF - continuity placed ---- patient states that she does not wish to go to ECF secondary to her not being able to participate in therapy secondary to Extension. In case of patient refusal or change in therapy plans will do HH continuity as well. Also will write for bedside commode (XL) for patient.
[2017-07-07] MEDS: (Canagliflozin [Invokana] 100 MG) PO SCH (21:28)
[2017-07-07] MEDS: Insulin DETEMIR 100 UNIT/ML X5UNITS SQ SCH (21:29)
[2017-07-08] MEDS: *HR* Enoxaparin 30 MG/0.3 ML SYRINGE SQ SCH (07:01)
[2017-07-08] MEDS: Insulin LISPRO 300 UNITS/3 ML VIAL SQ SCH ×2 (08:40→12:27)
[2017-07-08] MEDS: Torsemide 20 MG TABLET PO SCH (08:44)
[2017-07-08] MEDS: Famotidine 20 MG TABLET PO SCH (08:44)
[2017-07-08] MEDS: Diclofenac Sodium 75 MG TABLET PO SCH (08:44)
[2017-07-08] MEDS: Cholecalciferol (D-3) 1,000 UNIT TABLET PO SCH ×2 (08:44→08:45)
[2017-07-08] MEDS: *HR* Glimepiride 4 MG TABLET PO SCH (10:16)
[2017-07-08 11:41] VITALS: BP 105/63
--- NOTE | 2017-07-08 12:02 | Orthopedics Progress Note ---
Date of Encounter: 07/08/17 Time of Encounter: 08:00 - Assessment and Plan (1) Status post total knee replacement, left Current Visit: Yes Status: Acute Left TKR 07/05/17 - POD#3 Patient doing well, A&O in chair, Pain controlled. Vitals stable. Afebrile. H/H - Stable - - asymptomatic Plan: Continue in knee immobilizer brace x 2-3 weeks to allow incision to heal, no knee flexion. LLE: WBAT D/C to home today with HH. Patient has both liquid Oxycodone and tablets - she is to choose which one she wishes to be discharged on due to history of gastric bypass. 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 Qualified Code(s): E11.8 - Type 2 diabetes mellitus with unspecified complications (4) HTN (hypertension) Current Visit: Yes Status: Chronic Qualifiers: Hypertension type: essential hypertension Qualified Code(s): I10 - Essential (primary) hypertension (5) Obesity Current Visit: Yes Status: Chronic Qualifiers: Obesity type: due to excess calories Obesity classification: adult class 3 (BMI >= 40) Serious obesity comorbidity presence: without serious comorbidity Body mass index: unspecified BMI Qualified Code(s): E66.09 - Other obesity due to excess calories (6) Thyroid disease Current Visit: Yes Status: Chronic (7) Kidney injury Current Visit: Yes Status: Chronic Qualifiers: Encounter type: sequela Laterality: unspecified laterality Qualified Code (s): S37.009S - Unspecified injury of unspecified kidney, sequela Subjective Principal diagnosis: Left TKR 07/05/17 Interval history: Left TKR 07/05/17 - POD#3 Patient doing well, A&O in chair, Pain controlled. Vitals stable. Afebrile. H/H - Stable - - asymptomatic LLE: Minimal swelling, no erythema or ecchymosis noted. No calf tenderness or warmth noted. ROM limited due to immobilization NV intact distally. In knee immobilizer brace. Plan: Continue in knee immobilizer brace x 2-3 weeks to allow incision to heal, no knee flexion. LLE: WBAT D/C to home today with HH Objective Vital signs: Vital Signs Temp Pulse Resp BP Pulse Ox 07/08/17 09:54 98.7 F 97 16 105/63 95 07/08/17 06:56 98.9 F 94 16 109/57 95 07/08/17 04:06 98.6 F 90 18 107/54 94 07/07/17 23:16 98.2 F 91 18 120/64 94 07/07/17 20:25 98.5 F 87 18 101/62 97 07/07/17 15:15 98.1 F 95 16 115/70 95 Intake and Output 07/07/17 07/08/17 07/08/17 23:59 07:59 15:59 Intake Total 50 / 50 Balance 50 / 50 Intake: Oral 50 / 50 Other: # Voids 1 1 Weight 156.5 kg Blood Glucose* 178 131 Patient Weight 07/08/17 23:59 Weight 156.5 kg Incision: clean and dry - Labs CBC & BMP: 07/07/17 05:08 07/07/17 05:08 Labs: Abnormal lab results Hgb 10.7 g/dL (11.5-15.4) L 07/07/17 05:08 Hct 33.6 % (35.3-44.9) L 07/07/17 05:08 BUN 27 mg/dL (7-20) H 07/07/17 05:08 Est GFR (Non-Af Amer) 52 (> 60) L 07/07/17 05:08 Glucose 154 mg/dL (70-99) H 07/07/17 05:08 POC Glucose 131 (58-89) H 07/08/17 07:36 - VTE Documentation of Mechanical Device: Venous foot pump, device Consult Discharge Plan - Plan Additional Instructions: Discharge Instructions: Total Knee Replacement Please call [facility] ([phone]), your Primary Care Physician, or report to the Emergency Room if you have any of the following symptoms: Nausea, vomiting, fever greater that 101.5, swelling, chest pain, shortness of breath, increased pain/redness/drainage/odor for your incision site, numbness/ tingling, or any other concerning symptoms. ACTIVITY:Weight-bearing as tolerated. You may progress off support (crutches or walker) as tolerated. MEDICATIONS: Upon discharge resume your home medications. Take all the medications as prescribed. Take a stool softener if taking narcotic pain medications. Stool softeners are only effective if you drink enough fluids. Drink 6-8 glass of water or fluids a day, unless this is not allowed for another health problem. Despite using stool softeners, if you haven't had a bowel movement in 3 days, please switch to a gentle laxative. Gentle laxatives are sold over the counter. You should have a bowel movement within 24 hours, if not call the office. You will be discharged from the hospital with a prescription for pain medication. You are encouraged to decrease the use of narcotic pain medication as tolerated. Should you require a refill, please call the office. [facility] prescribes narcotic pain medication for only 4-6 weeks after surgery. If you require pain medication beyond this time period, you may be referred to your Primary Care Physician or to the Pain Clinic for further evaluation. Plan ahead for refills on pain medication as many narcotics either need to be picked up at the office or mailed. It is best to call 48-72 hours in advance of needing a prescription refill so you don't run out of medication. To help control the post-operative pain, you may take NSAIDs (Aleve,Advil, Motrin, Ibuprofen, Naprosyn) or Tylenol as prescribed on the bottle in addition to the pain medication. ANTICOAGULATION (blood thinners): Continue your Aspirin, Lovenox or Coumadin as prescribed to help prevent a blood clot in the leg or in the lungs. As long as your incision remains dry and you tolerate the NSAIDs (Aleve, Advil, Motrin, ibuprofen, naprosyn), it is OK to use the NSAIDS while you are taking your anticoagulation medication. Should your incision start to drain, stop the NSAID and contact our office. Common symptoms of blood clot in the legs include: localized pain, swelling, calf tenderness, redness or discoloration of the skin. Blood clot in the lung symptoms include: shortness of breath, rapid pulse, sweating, and chest pain that worsens with deep breathing, coughing up blood, lightheadedness, feelings of anxiety. If you experience any of these symptoms notify your physician immediately, go to the emergency room, or if having trouble breathing, call 911. WOUND CARE: Leave the dressing on for 7 to 10days. You may change the dressing if it becomes saturated greater than 50%. Do not get the dressing wet at anytime. Wash your hands with antibacterial soap, rinse and dry prior to any wound care. If you have carl the visiting nurse or rehab facility can remove the stapes 10-14 days after surgery [address] steri-strips across the wound. Leave the steri-strips in place until they fall off on their won. You may let water from the shower run on top of the steri-strips. If you do not have a visiting nurse or rehab facility, you will need to return to the office at 10-14 days for the carl to be removed. If you have itching or redness around the dressing call the office. FOLLOW-UP: Please follow up with your surgeon in the orthopedic clinic in 4 weeks from the day of surgery. If you have carl that need to be removed, you will need to come back to the office in 10-14 days from the day of surgery. Referrals: Oni Lenz MD [Partnered Physician] - 08/04/17 4:05 pm Jocelyn Sanchez PAC [Physician Proctologist] - 07/15/17 9:15 am (Second followup (staple removal) 07/23/17 @ 8:30am with Ko Sanchez)
== END 2017-07-08 18:11 | disposition home health service (06) | DRG 302 ==
LOC: SAMDAY 08:58 → 3NENU 15:21
PROVIDERS: ADMIT Orthopaedic Surgery; ATTEND Orthopaedic Surgery

== ENCOUNTER 2018-06-29 11:06 | Inpatient (IN) ==
--- NOTE | 2018-06-28 22:18 | Discharge Summary ---
<Oni Lenz - Last Filed: 07/01/18 09:51> Orders not resulted at time of discharge: Pending orders 06/29/18 09:21 US anesthesia pain block [US] Routine 06/29/18 15:17 Surgical Pathology [PTH] Routine Date of Encounter: 07/01/18 - Discharge Diagnosis (1) Chronic kidney disease, stage I Priority: Secondary Status: Chronic - Hospital Course Hospital course: Ms. Weiss is a 57 year old female - Time Spent with Patient Total time spent providing and/or coordinating discharge services: - Discharge Medications Home Medications: Canagliflozin [Invokana] 100 mg PO HS 07/05/17 [History] Diclofenac Sodium [Voltaren] 75 mg PO BID 07/05/17 [History] Glimepiride [Amaryl] 4 mg PO BID 07/05/17 [History] Levothyroxine [Synthroid] 100 mcg PO DAILY 07/05/17 [History] Losartan Potassium [Cozaar] 50 mg PO DAILY 07/05/17 [History] Torsemide 5 mg PO DAILY 07/05/17 [History] Insulin Glargine,Hum.rec.anlog [Basaglar Kwikpen U-100] 7 unit SQ DAILY [History] Allergies/Adverse Reactions: 3 Allergy/AdvReac Type Severity Reaction Status Date / Time codeine Allergy Nose Bleed Verified 06/29/18 12:07 Date of admission: 06/29/18 17:18 Primary care physician: PCP NONE Consults: 06/29/18 17:34 Consult to Occupational Therapy [CONS] Routine Comment: Evaluate, develop and implement POC Reason for Consult: post knee surgery Does patient have active BEDREST order?: No Is patient medically & hemodynamically stable?: Yes Consult to Orthopedic Navigator [CONS] [CONS] Routine Consult to Physical Therapy [CONS] Routine Comment: Evaluate, develop and impliment POC Reason for Consult: post knee surgery Does patient have active BEDREST order?: No Is patient medically & hemodynamically stable?: Yes Consult to End Trimmer [CONS] Routine Reason for SW Consult: post op joint replacement, discharge planning RT Post Op Consult [CONS] Routine Labs on day of discharge: Labs from last 24 hours 07/01/18 07/01/18 06/30/18 01:02 01:02 19:41 Hgb 11.0 L D Hct 35.1 L Sodium 139 Potassium 3.8 Chloride 105 Carbon Dioxide 25 BUN 29 H Creatinine 1.23 H Est GFR ( Amer) 54 L Est GFR (Non-Af Amer) 45 L BUN/Creatinine Ratio 24 Glucose 197 H POC Glucose 215 H Calculated Osmolality 299 Calcium 8.5 L 06/30/18 06/30/18 06/30/18 17:13 11:55 07:59 Hgb Hct Sodium Potassium Chloride Carbon Dioxide BUN Creatinine Est GFR ( Amer) Est GFR (Non-Af Amer) BUN/Creatinine Ratio Glucose POC Glucose 124 H 205 H 211 H Calculated Osmolality Calcium - Impressions ITS Impressions Knee X-Ray 06/29/18 00:01 IMPRESSION: Total knee arthroplasty without evidence of hardware complication. D/ / Rivas Forbes MD / Rivas Forbes MD Interpreting Provider: Rivas Forbes MD - Patient Status Disposition: Home Health Service Condition: Good - Discharge Instructions Follow Up With: NONE,PCP [Primary Care Provider] - <Jocelyn Sanchez - Last Filed: 07/01/18 12:34> Date of Encounter: 07/01/18 Time of Encounter: 12:31 - Discharge Diagnosis (1) Arthritis of knee, right Priority: Primary Status: Acute (2) Status post total knee replacement, right Priority: Primary Status: Acute (3) DMII (diabetes mellitus, type 2) Priority: Secondary Status: Chronic Qualifiers: Diabetes mellitus correction insulin use: unspecified correction insulin use status Diabetes mellitus complication status: with unspecified complications Qualified Code(s): E11.8 - Type 2 diabetes mellitus with unspecified complications (4) HTN (hypertension) Priority: Secondary Status: Chronic Qualifiers: Hypertension type: essential hypertension Qualified Code(s): I10 - Essential (primary) hypertension (5) History of gastric bypass Priority: Secondary Status: Chronic (6) Morbid obesity with BMI of 50.0-59.9, adult Priority: Secondary Status: Chronic (7) Thyroid disease Priority: Secondary Status: Chronic - Hospital Course Hospital course: Ms. Weiss is a 57 year old female, status post Right TKR 06/29 - Zoë in place . Patient had uneventful postoperative course. Stable for discharge. Patient seen at bedside, without complaints. A&O x 3 Afebrile, vital signs stable. Vital Signs Temp Pulse Resp BP Pulse Ox 07/01/18 11:44 98.2 F 91 17 125/63 95 07/01/18 09:58 95 07/01/18 07:23 98.7 F 85 16 135/73 95 06/30/18 20:47 98.8 F 87 16 115/68 96 06/30/18 17:14 98.6 F 87 18 113/68 95 06/30/18 14:42 97.8 F 86 17 101/66 98 Intake and Output 06/30/18 07/01/18 07/01/18 23:59 07:59 15:59 Other: # Voids 1 Blood Glucose* 215 204 207 Labs reviewed. H/H - stable, asymptomatic Abnormal Labs 06/29/18 06/29/18 06/30/18 11:33 13:58 00:54 Hgb Hct BUN 34 H Creatinine 1.26 H Est GFR ( Amer) 53 L Est GFR (Non-Af Amer) 44 L BUN/Creatinine Ratio 27 H Glucose 252 H POC Glucose 147 H 161 H Calculated Osmolality 304 H Calcium 06/30/18 06/30/18 06/30/18 07:59 11:55 17:13 Hgb Hct BUN Creatinine Est GFR ( Amer) Est GFR (Non-Af Amer) BUN/Creatinine Ratio Glucose POC Glucose 211 H 205 H 124 H Calculated Osmolality Calcium 06/30/18 07/01/18 07/01/18 19:41 01:02 01:02 Hgb 11.0 L D Hct 35.1 L BUN 29 H Creatinine 1.23 H Est GFR ( Amer) 54 L Est GFR (Non-Af Amer) 45 L BUN/Creatinine Ratio Glucose 197 H POC Glucose 215 H Calculated Osmolality Calcium 8.5 L Pain control: adequate Participating in PT. All questions and concerns addressed. Educated on use of incentive spirometer. Encouraged ambulation and proper hydration. Patient educated on post-operative restrictions and post-operative care. Assessment and plan: Continue with postoperative care Discharge plan: Home , discharge today - Time Spent with Patient Total time spent providing and/or coordinating discharge services: Primary care physician: PCP NONE Anticipated date of discharge: 07/01/18 - Patient Status Functional capacity at discharge: uses cane/walker Overall status at discharge: patient is progressing back to baseline
--- NOTE | 2018-06-29 10:45 | Anesthesia Evaluation PreOp ---
Date of Encounter: 06/29/18 Time of Encounter: 12:23 - Past History Planned Operation: ROBOTIC RIGHT TKA Cardiac History: HTN Other Medical History: Diabetes Type II, Thyroid, Other (MORBID OBESITY, BMI 53) Anesthesia History: No Prior Anesthetic Complications Alcohol Use: none Drug use: none Medications and Allergies Canagliflozin [Invokana] 100 mg PO HS 07/05/17 [History] Diclofenac Sodium [Voltaren] 75 mg PO BID 07/05/17 [History] Glimepiride [Amaryl] 4 mg PO BID 07/05/17 [History] Levothyroxine [Synthroid] 100 mcg PO DAILY 07/05/17 [History] Losartan Potassium [Cozaar] 50 mg PO DAILY 07/05/17 [History] Torsemide 5 mg PO DAILY 07/05/17 [History] Basaglar Kwikpen U-100 100 units 3XW 06/29/18 [History] 3 Allergy/AdvReac Type Severity Reaction Status Date / Time codeine Allergy Nose Bleed Verified 06/29/18 12:07 - Meds/Allergy Pre-op Review Medications Reviewed: Yes Allergies Reviewed: Yes Beta Blockers on Current Med List: No Anesthesia Results - Labs Laboratory Last Values WBC 8.2 K/mcL (4.3-11.1) 06/14/18 13:45 RBC 4.78 M/mcL (3.82-4.97) 06/14/18 13:45 Hgb 13.0 g/dL (11.5-15.4) 06/14/18 13:45 Hct 40.7 % (35.3-44.9) 06/14/18 13:45 MCV 85.1 fL (83.0-100.0) 06/14/18 13:45 MCH 27.2 pg (28.0-33.3) L 06/14/18 13:45 MCHC 31.9 g/dL (31.6-35.5) 06/14/18 13:45 RDW 15.2 % (11.5-14.5) H 06/14/18 13:45 Plt Count 268 K/mcL (140-400) 06/14/18 13:45 MPV 10.6 fL (9.4-12.4) 06/14/18 13:45 Immature Gran % 0.4 % (0-4) 06/14/18 13:45 Seg Neutrophils % 76.9 % 06/14/18 13:45 Lymphocytes % 14.1 % 06/14/18 13:45 Monocytes % 6.3 % 06/14/18 13:45 Eosinophils % 1.7 % 06/14/18 13:45 Basophils % 0.6 % 06/14/18 13:45 Neutrophils # 6.3 K/mcL (1.6-8.9) 06/14/18 13:45 Lymphocytes # 1.2 K/mcL (0.6-4.6) 06/14/18 13:45 Monocytes # 0.5 K/mcL (0.0-1.3) 06/14/18 13:45 Eosinophils # 0.1 K/mcL (0.0-0.6) 06/14/18 13:45 Basophils # 0.1 K/mcL (0.0-0.2) 06/14/18 13:45 PT 11.4 Seconds (9.4-12.1) 06/14/18 13:45 INR 1.0 06/14/18 13:45 APTT 35.2 Seconds (26.0-36.0) 06/14/18 13:45 Sodium 141 mEq/L (136-145) 06/14/18 13:45 Potassium 3.9 mEq/L (3.5-5.1) 06/14/18 13:45 Chloride 108 mEq/L (98-107) H 06/14/18 13:45 Carbon Dioxide 25 mEq/L (23-29) 06/14/18 13:45 BUN 34 mg/dL (6-20) H 06/14/18 13:45 Creatinine 1.32 mg/dL (0.60-1.20) H 06/14/18 13:45 Est GFR ( Amer) 50 (> 60) L 06/14/18 13:45 Est GFR (Non-Af Amer) 41 (> 60) L 06/14/18 13:45 BUN/Creatinine Ratio 26 (6-26) 06/14/18 13:45 Est Mean Plasma Glucose 192 mg/dl 06/14/18 13:45 Hemoglobin A1c 8.3 % (-5.6) H 06/14/18 13:45 Anesthesia Exam O2 Sat Height 1.73 m Height 1.73 m Weight 156.489 kg Weight 156.489 kg O2 Sat by Pulse Oximetry 97 Vital Signs/O2 Sat/Glucose, Most Recent Temp Pulse Resp BP Pulse Ox 98.1 F 90 18 153/84 97 06/29/18 11:36 06/29/18 11:36 06/29/18 11:36 06/29/18 11:36 06/29/18 11:36 Blood Glucose* 147 NPO (# of Hours): 8 - HEENT Mallampati: II Teeth: Normal (CROWN #1) Oral Opening: Greater than 3 - Cardiac Rhythm: Regular - Pulmonary Breath Sounds: bilateral Clear Respiratory Effort: Symmetrical Anesthesia Assess/Plan ASA Score: 3 Modified Yvonne Scale for Level of Consciousness: Cooperative, oriented, and tranquil Anesthetic Plan: General, Regional Monitoring Plan: Standard Monitors Recovery Plan: PACU Anes Supervising Prov Stmt: [employer] LIST NOT UPDATED THIS VISIT PATIENT'S CHART AND CURRENT MEDICATIONS REVIEWED Patient informed and consented. Risks, benefits, and alternatives discussed. Patient wishes to proceed. Surgical History GELA Carpal Tunnel Gastric Bypass 2004 LEFT TKR 07/05/17
[2018-06-29] MEDS ORDERED: CeFAZolin Syr 3,000MG/30 ML 3,000 MG/30 ML SYRINGE IVPB ONE (12:14)
[2018-06-29] MEDS ORDERED: Ringers Solution, Lactated 1,000 ML IVC SCH ×2 (12:15→17:34)
--- NOTE | 2018-06-29 12:17 | History & Physical Report ---
Date of Encounter: 06/29/18 Time of Encounter: 12:17 24 Hour HP Update - Instructions Instructions: If the History and Physical is less than 30 days old and was completed prior to A.M. admission and or procedure and has NOT been updated on calendar day of procedure please complete this update prior to performing procedure. - Update Patient reports changes in Medical Condition: No Changes in examination, assessment, or condition: No Changes in Medication: No Preop tests/diagnostics Reviewed: Yes Surgery Remains Indicated: Yes Consent for Planned Operative Procedure(s) Verified: Yes - Pre-Operative Checklist Preoperative Checklist Indicated: No Prophylactic Antibiotic Ordered: Yes Is VTE Prophylaxis Indicated?: Yes
[2018-06-29] MEDS ORDERED: *HR* FentaNYL (PF) 100 MCG/2 ML VIAL ONE ×2 (12:21→14:50)
[2018-06-29] MEDS ORDERED: Lidocaine -MPF 2% 2 ML VIAL ONE (12:21)
[2018-06-29] MEDS ORDERED: *HR* Propofol 200 MG/20 ML VIAL IVP ONE (12:21)
[2018-06-29] MEDS ORDERED: *HR* Midazolam HCl 2 MG/2 ML VIAL ONE (12:21)
[2018-06-29] MEDS ORDERED: Dexamethasone 4 MG/ML VIAL ONE ×2 (12:22→14:34)
[2018-06-29] MEDS ORDERED: Acetaminophen IV 500 MG/50 ML INFUS..BTL IVPB ONE (12:23)
[2018-06-29] MEDS ORDERED: Ondansetron 4 MG/2 ML VIAL ONE (12:29)
[2018-06-29] MEDS ORDERED: *HR* OxyCODONE Immed Rel 5 MG TABLET PO PRN (12:41)
[2018-06-29] MEDS ORDERED: *HR* Labetalol 20 MG/4 ML SYRINGE IVP PRN (12:41)
[2018-06-29] MEDS ORDERED: *HR* Promethazine 25 MG/ML VIAL IVP PRN (12:41)
[2018-06-29] MEDS ORDERED: Acetaminophen IV 1,000 MG/100 ML INFUS..BTL ONE (12:54)
[2018-06-29] MEDS ORDERED: ROPIVACAINE HCL/PF 0.5% 30 ML VIAL ONE (13:36)
[2018-06-29] MEDS ORDERED: Bupivacaine/Clonidine Syringe 1 EACH SYRINGE ONE (13:36)
[2018-06-29] MEDS ORDERED: KETAMINE HCL 50 MG/ML SYRINGE IV ONE (13:52)
[2018-06-29] MEDS ORDERED: Ethanol\\Acetic Acid\\Na Ace\\Ben 1,000 ML IRRIG.SOLN IR ONE (13:58)
--- NOTE | 2018-06-29 14:01 | Anesthesia Procedures ---
Date of Encounter: 06/29/18 Time of Encounter: 13:57 Procedures: Anesthesia - Nerve Block Procedure Date: 06/29/18 Time: 14:01 Pre-op Diagnosis: Right Knee Osteoathritis Surgical Procedure: Robotic Right Total Knee Arthroplasty Checklist: Correct Patient Identifier, Correct procedure, History checked Correct side: Right Blood Thinner: No Monitor Applied: BP, Pulse Oximetry Supplemental Oxygen via Nasal Cannula (L/min): 2 Sedation: Versed (mg): 2 Sedation: Fentanyl (mcg): 100 Indication: Post Op Analgesia Pre-op Neuro Deficits: No Block Type: Femoral (30ml Ropivacaine 0.5% given) Catheter placed: No Sterile Technique: Yes Ultrasound used: Yes Anatomy identified: Yes Visual spread of Local: Yes Neuro Stimulation: No Blood on Needle Aspiration: No Smooth Injection of Local: Yes Pain with Injection of Local: No Prep: Chlorhexadine Needle: 21 x 100 mm Stimuplex Local: Ropivacaine (30ml 0.5% Ropivacaine) Volume (cc): 30 Number of Attempts: 1 Complications: None/effective block Vitals: See Beside sedation RN monitor notes
[2018-06-29] MEDS ORDERED: *HR* PHENYLEPHRINE 1,000 MCG/10 ML SYRINGE IVP ONE (14:29)
--- NOTE | 2018-06-29 15:18 | Orthopedic Operative Note ---
Date of procedure: 06/29/18 Pre-op diagnosis: Right knee arthritis Post-op diagnosis: same (Morbid obesity) Procedure: Procedure: Right robotic-assisted Total knee replacement Estimated blood loss: 500 cc Hardware: Metal and polyethylene replacement. Millie Femur: 5 Tibia: 6 TS insert: 11 Patella: 39 Exam Under anesthesia: 8 degrees hyperextension 19 degree varus as calculated by the robot full flexion and no instability Procedural Notes: Grade 4 arthritic changes all 3 compartments. Operative procedure: The patient was brought to the operating room and placed on the operating room table. After general anesthesia was administered the operative knee was examined. Findings were noted in the exam under anesthesia. The operative extremity was prepped and draped in sterile surgical fashion. The patient received IV antibiotics prior to skin incision. A standard midline incision was made centered over the patella. The incision was made through the skin and subcutaneous tissue. A medial parapatellar tendon approach was performed. Care was taken to preserve tissue along the medial aspect of the patella. And to protect the patella tendon. The deep MCL was released off the medial tibia. The infra patella fat pad was excised. The patella was everted and cut was made at the level of the insertion of the quadriceps and patella tendon. The patella was sized to 39 the guide was seated and the lug holes are drilled. Knee was brought into flexion. Patient noted to have Steinmann pins were placed in the tibia and the femur for the tibial and femoral arrays respectively. Checkpoints were also placed in the tibia and the femur for calculation purposes. The knee including the femur and the tibial registered. Osteophytes, ACL and PCL were excised at this point. Extension and flexion were assessed with a valgus stress components were adjusted on the computer to balance the knee. Femoral cuts were made first with robotic assistance, these included the anterior cut posterior cuts chamfer cuts. Tibial cut was then performed with robotic assistance as well. Bone fragments were removed, as well as the medial and lateral meniscus. The size 5 femoral guide was seated box cut was made lug holes are drilled. The size 6 tibial tray was seated and prepared with the fin cutter. Trial reduction with the 11 TS Dee revealed extension of 0 degree and 12 degree varus full flexion. No varus valgus instability. Trial reduction revealed excellent patella tracking. All trial components were removed all bony surfaces were irrigated. The Tibia was seated followed by the femur, The Dee size 11 was seated and secured patella. Patient had similar findings for motion and stability. The knee was closed by the PA. The knee was then irrigated out with 2 L of pulse irrigation. The extensor mechanism was closed with #2 FiberWire suture and #2 PDS suture. The subcutaneous tissue was then irrigated and closed deep with #1 PDS suture superficially with 0 PDS suture and skin was closed with zip tie The patient was then placed in a sterile dressing and a postoperative brace extubated and transferred to recovery room in stable condition. Anesthesia: GETA Surgeon: Oni Lenz Was there an assistant professor of german present: No Estimated blood loss (cc): 500 Condition: stable Disposition: PACU
[2018-06-29] MEDS ORDERED: *HR* Morphine 10 MG/ML VIAL ONE (15:45)
[2018-06-29] MEDS: *HR* HYDROmorphone (PF) 1 MG/ML SYRINGE IVP PRN ×2 (16:07→16:17)
[2018-06-29 16:19] LABS: Hematocrit 40.5 % (35.3-44.9); Hemoglobin 12.6 g/dL (11.5-15.4)
--- NOTE | 2018-06-29 16:48 | Anesthesia Evaluation Post Op ---
Date of Encounter: 06/29/18 Time of Encounter: 16:47 - Vital Signs Vital Signs: Vital Signs/O2 Sat, Most Current Temp Pulse Resp BP Pulse Ox 97.8 F 66 16 131/69 95 06/29/18 16:23 06/29/18 16:33 06/29/18 16:33 06/29/18 16:33 06/29/18 16:33 - Lungs Lungs: Clear Ascult./Percussion - Airway Airway: Non-obstructed - Cardiovascular Regular Rate - Mental Status Mental Status: Asleep with brisk response to light stimulation - Pain Pain Scale: 8 (sleeping) Pain Scale used: Numeric (1 - 10) - Nausea Vomiting Nausea Vomiting: Not Present - Hydration Hydration: NPO, Has not voided - Discharge PostOp Status: Transfer Patient to floor
[2018-06-29] MEDS ORDERED: Dextrose Gel 15 GM/37.5 ML TUBE PO PRN ×2 (17:34)
[2018-06-29] MEDS ORDERED: traMADol 50 MG TABLET PO PRN (17:34)
[2018-06-29] MEDS ORDERED: Sennosides 8.6 MG TABLET PO PRN (17:34)
[2018-06-29] MEDS ORDERED: D5% in Water 1,000 ML IVC PRN (17:34)
[2018-06-29] MEDS ORDERED: Naloxone 0.4 MG/ML INJ IVP PRN (17:34)
[2018-06-29] MEDS ORDERED: MOM Conc 10 ML UD.LIQ PO PRN (17:34)
[2018-06-29] MEDS ORDERED: *HR* Dextrose 50 % in Water (Syg) 50 ML SYRINGE IVP PRN (17:34)
[2018-06-29] MEDS ORDERED: Temazepam 15 MG CAPSULE PO PRN (17:34)
[2018-06-29] MEDS ORDERED: *HR* Enoxaparin 30 MG/0.3 ML SYRINGE SQ SCH (18:00)
[2018-06-29] MEDS: *HR* OxyCODONE Immed Rel 5 MG TABLET PO PRN (18:17)
[2018-06-29] MEDS: *HR* Enoxaparin 30 MG/0.3 ML SYRINGE SQ SCH (18:17)
[2018-06-29] MEDS: Ondansetron 4 MG/2 ML VIAL IVP PRN ×2 (18:34→21:13)
[2018-06-29] MEDS: Insulin LISPRO 300 UNITS/3 ML VIAL SQ SCH ×2 (18:55→20:55)
[2018-06-29] MEDS: *HR* Glimepiride 4 MG TABLET PO SCH (20:55)
[2018-06-29] MEDS: (Canagliflozin [Invokana] 100 MG) PO SCH (20:56)
[2018-06-29] MEDS: ceFAZolin 3,000 MG in 0.9 % Sodium Chloride 100 ML IVPB SCH (23:47)
[2018-06-30 01:37] LABS: Hematocrit 40.2 % (35.3-44.9); Hemoglobin 12.6 g/dL (11.5-15.4)
[2018-06-30 01:43] LABS: Calcium 8.6 mg/dL (8.6-10.3); Potassium 3.9 mEq/L (3.5-5.1)
[2018-06-30] MEDS: *HR* OxyCODONE Immed Rel 5 MG TABLET PO PRN ×3 (02:52→22:04)
[2018-06-30] MEDS: ceFAZolin 3,000 MG in 0.9 % Sodium Chloride 100 ML IVPB SCH (06:22)
[2018-06-30] MEDS: *HR* OxyCODONE/APAP 5/325 TABLET PO PRN (06:23)
[2018-06-30] MEDS: *HR* Enoxaparin 30 MG/0.3 ML SYRINGE SQ SCH ×2 (06:24→16:53)
--- NOTE | 2018-06-30 08:02 | Orthopedics Progress Note ---
Date of Encounter: 06/30/18 Time of Encounter: 08:02 Subjective Interval history: Patient was seen this morning doing well without complaints. Afebrile vital signs stable. Operative extremity: Neurovascularly intact Dressing clean dry and intact Calves nontender Assessment and plan: Continue with postoperative care Objective Vital signs: Vital Signs Temp Pulse Resp BP Pulse Ox 06/30/18 07:33 98.3 F 90 16 125/75 98 06/29/18 22:54 97.5 F L 71 15 138/76 96 06/29/18 18:30 98.1 F 72 18 140/81 96 06/29/18 18:00 98 F 67 17 121/74 99 06/29/18 17:30 98 F 66 17 116/77 97 06/29/18 16:53 97.9 F 66 16 133/70 93 06/29/18 16:43 64 16 134/70 93 06/29/18 16:33 66 16 131/69 95 06/29/18 16:23 97.8 F 70 14 141/72 93 06/29/18 16:13 67 16 135/73 96 06/29/18 16:03 69 16 139/70 94 06/29/18 15:53 97.4 F L 64 16 129/72 99 06/29/18 13:48 74 15 131/68 94 06/29/18 13:33 86 15 148/72 97 06/29/18 11:36 98.1 F 90 18 153/84 97 Intake and Output 06/29/18 06/30/18 06/30/18 23:59 07:59 15:59 Intake Total 100 / 100 100 / 100 Output Total 500 / 500 Balance 100 / 100 -400 / -400 Intake: IV Fluids 100 / 100 Ancef 3,000 MG In 0.9 % Sodium 100 / 100 Chloride 100 ML @ 200 mls/hr IVPB Q8H [facility] Rx#:[id number] Oral 100 / 100 Output: Urine 500 / 500 Other: Blood Glucose* 259 211 - Labs CBC & BMP: 06/30/18 00:54 06/30/18 00:54 Labs: Abnormal lab results BUN 34 mg/dL (6-20) H 06/30/18 00:54 Creatinine 1.26 mg/dL (0.60-1.20) H 06/30/18 00:54 Est GFR ( Amer) 53 (> 60) L 06/30/18 00:54 Est GFR (Non-Af Amer) 44 (> 60) L 06/30/18 00:54 BUN/Creatinine Ratio 27 (6-26) H 06/30/18 00:54 Glucose 252 mg/dL (70-105) H 06/30/18 00:54 POC Glucose 161 mg/dL (70-99) H 06/29/18 13:58 Calculated Osmolality 304 (280-300) H 06/30/18 00:54 Consult Discharge Plan - Plan Referrals: NONE,PCP [Primary Care Provider] -
[2018-06-30] MEDS: *HR* Glimepiride 4 MG TABLET PO SCH ×2 (10:00→22:04)
[2018-06-30] MEDS: Torsemide 20 MG TABLET PO SCH (10:01)
[2018-06-30] MEDS: Insulin LISPRO 300 UNITS/3 ML VIAL SQ SCH ×4 (10:03→22:06)
--- NOTE | 2018-06-30 17:02 | Event Note ---
Date of Encounter: 06/30/18 Time of Encounter: 16:57 PCR - POD#1 - Right TKR, morbid obesity; carl in place. Patient seen at bedside, without complaints. A&O x 3 Afebrile, vital signs stable. Labs reviewed. H/H - stable, asymptomatic Pain control: adequate Participating in PT. All questions and concerns addressed. Educated on use of incentive spirometer. Encouraged ambulation and proper hydration. Patient educated on post-operative restrictions and post-operative care. Assessment and plan: Continue with postoperative care Discharge plan: Home with , discharge home tomorrow afternoon Vital Signs Temp Pulse Resp BP Pulse Ox 06/30/18 14:42 97.8 F 86 17 101/66 98 06/30/18 12:03 98.6 F 95 16 93/55 96 06/30/18 07:33 98.3 F 90 16 125/75 98 06/29/18 22:54 97.5 F L 71 15 138/76 96 06/29/18 18:30 98.1 F 72 18 140/81 96 06/29/18 18:00 98 F 67 17 121/74 99 06/29/18 17:30 98 F 66 17 116/77 97 Intake and Output 06/30/18 06/30/18 06/30/18 07:59 15:59 23:59 Intake Total 100 / 100 100 / 100 Output Total 500 / 500 200 / 200 Balance -400 / -400 -100 / -100 Intake: IV Fluids 100 / 100 Ancef 3,000 MG In 0.9 % Sodium 100 / 100 Chloride 100 ML @ 200 mls/hr IVPB Q8H [facility] Rx#:[id number] Oral 100 / 100 Output: Urine 500 / 500 200 / 200 Other: Blood Glucose* 206 Abnormal Labs, Last 24 hours 06/30/18 06/30/18 06/30/18 11:55 07:59 00:54 BUN 34 H Creatinine 1.26 H Est GFR ( Amer) 53 L Est GFR (Non-Af Amer) 44 L BUN/Creatinine Ratio 27 H Glucose 252 H POC Glucose 205 H 211 H Calculated Osmolality 304 H
--- NOTE | 2018-06-30 17:06 | Physician Discharge Referral ---
Home Health/Hosp Referral Info Transfer to: Home Health Attending Provider: Provider in Charge Post Discharge: PCP - Diagnosis (1) Arthritis of knee, right Priority: Primary Status: Acute (2) Status post total knee replacement, right Priority: Primary Status: Acute (3) DMII (diabetes mellitus, type 2) Priority: Secondary Status: Chronic (4) HTN (hypertension) Priority: Secondary Status: Chronic (5) History of gastric bypass Priority: Secondary Status: Chronic (6) Morbid obesity with BMI of 50.0-59.9, adult Priority: Secondary Status: Chronic (7) Thyroid disease Priority: Secondary Status: Chronic - Respiratory Orders None Smoking Cessation: Smoking cessation has been advised. For more information, call the [employer] Tobacco Quit Line at 6-677-DFIA-NOW. - Diet/Nutrition Diet/Nutrition Orders: Regular - Activity Activity Orders: Up ad hortencia, Ambulate, Walker - Services Needed Following services are medically necessary services: Nursing, Home Health Aide, Physical Therapy, Occupational Therapy Home Care Orders: Opsite dressing, leave intact until first post-operative visit. If dressing becomes >50% saturated, contact office, remove dressing and place appropriate dressing in its place. Do not allow for dressing to get wet. Zipline/Zoë in place, plan to remove at post-operative day #14-16. Total Joint Precautions x 6 weeks Apply cold therapy wrap 3-6x/day for 20 minutes at a time. Encourage ambulation throughout the day Use Incentive spirometer 10x/hour. Elevate affected extremity above heart as tolerated. Brace: Wear knee immobilizer at night until first post-operative appt. - Transfer Medications Home Medications: Canagliflozin [Invokana] 100 mg PO HS 07/05/17 [History] Diclofenac Sodium [Voltaren] 75 mg PO BID 07/05/17 [History] Glimepiride [Amaryl] 4 mg PO BID 07/05/17 [History] Levothyroxine [Synthroid] 100 mcg PO DAILY 07/05/17 [History] Losartan Potassium [Cozaar] 50 mg PO DAILY 07/05/17 [History] Torsemide 5 mg PO DAILY 07/05/17 [History] Insulin Glargine,Hum.rec.anlog [Basaglar Kwikpen U-100] 7 unit SQ DAILY [History] Allergies/Adverse Reactions: 3 Allergy/AdvReac Type Severity Reaction Status Date / Time codeine Allergy Nose Bleed Verified 06/29/18 12:07 Certification: Further, I certify that my clinical findings support that this patient is homebound (i.e. absences from home require considerable and taxing effort and are for medical reasons or hinduism services or infrequently or short duration when for other reasons) because: Homebound Reason: Post-surgery restriction and or conditions limit ability to leave home Attestation: My signature below is to certify that this patient is under my care and that I, or nurse practitioner, or a physician's assistant therapy aide working with me, has a face-to -face encounter with this patient.
[2018-07-01 01:58] LABS: Hematocrit 35.1 % (35.3-44.9)
[2018-07-01 02:08] LABS: Calcium 8.5 mg/dL (8.6-10.3); Potassium 3.8 mEq/L (3.5-5.1)
[2018-07-01] MEDS: (Canagliflozin [Invokana] 100 MG) PO SCH ×2 (02:19→20:56)
[2018-07-01] MEDS: *HR* OxyCODONE/APAP 5/325 TABLET PO PRN ×2 (05:50→10:05)
[2018-07-01] MEDS: *HR* Enoxaparin 30 MG/0.3 ML SYRINGE SQ SCH ×2 (05:50→17:15)
--- NOTE | 2018-07-01 09:05 | Orthopedics Progress Note ---
Date of Encounter: 07/01/18 Time of Encounter: 09:05 Subjective Interval history: Patient was seen this morning doing well without complaints. Afebrile vital signs stable. Operative extremity: Neurovascularly intact Dressing clean dry and intact Calves nontender Assessment and plan: Continue with postoperative care Objective Vital signs: Vital Signs Temp Pulse Resp BP Pulse Ox 07/01/18 07:23 98.7 F 85 16 135/73 95 06/30/18 20:47 98.8 F 87 16 115/68 96 06/30/18 17:14 98.6 F 87 18 113/68 95 06/30/18 14:42 97.8 F 86 17 101/66 98 06/30/18 12:03 98.6 F 95 16 93/55 96 Intake and Output 06/30/18 07/01/18 07/01/18 23:59 07:59 15:59 Other: # Voids 1 Blood Glucose* 215 204 - Labs CBC & BMP: 07/01/18 01:02 07/01/18 01:02 Labs: Abnormal lab results Hgb 11.0 g/dL (11.5-15.4) L D 07/01/18 01:02 Hct 35.1 % (35.3-44.9) L 07/01/18 01:02 BUN 29 mg/dL (6-20) H 07/01/18 01:02 Creatinine 1.23 mg/dL (0.60-1.20) H 07/01/18 01:02 Est GFR ( Amer) 54 (> 60) L 07/01/18 01:02 Est GFR (Non-Af Amer) 45 (> 60) L 07/01/18 01:02 Glucose 197 mg/dL (70-105) H 07/01/18 01:02 POC Glucose 215 mg/dL (70-99) H 06/30/18 19:41 Calcium 8.5 mg/dL (8.6-10.3) L 07/01/18 01:02 Consult Discharge Plan - Plan Referrals: NONE,PCP [Primary Care Provider] -
[2018-07-01] MEDS: *HR* Glimepiride 4 MG TABLET PO SCH ×2 (09:45→21:03)
[2018-07-01] MEDS: Insulin LISPRO 300 UNITS/3 ML VIAL SQ SCH ×4 (09:46→21:01)
[2018-07-01] MEDS: Torsemide 20 MG TABLET PO SCH (09:47)
[2018-07-01] MEDS: *HR* OxyCODONE Immed Rel 5 MG TABLET PO PRN (15:14)
[2018-07-02] MEDS: *HR* OxyCODONE Immed Rel 5 MG TABLET PO PRN (00:12)
[2018-07-02] MEDS: *HR* Enoxaparin 30 MG/0.3 ML SYRINGE SQ SCH (05:28)
--- NOTE | 2018-07-02 06:55 | Orthopedics Progress Note ---
Date of Encounter: 07/02/18 Time of Encounter: 06:54 - Assessment and Plan (1) Chronic kidney disease, stage I Current Visit: Yes Status: Chronic Subjective Interval history: Patient was seen this morning doing well without complaints. Afebrile vital signs stable. Operative extremity: Neurovascularly intact Dressing clean dry and intact Calves nontender Assessment and plan: Continue with postoperative care Discharged today Objective Vital signs: Vital Signs Temp Pulse Resp BP Pulse Ox 07/02/18 00:09 98.8 F 90 15 138/68 94 07/01/18 18:22 99.9 F H 102 18 122/73 97 07/01/18 11:44 98.2 F 91 17 125/63 95 07/01/18 09:58 95 07/01/18 07:23 98.7 F 85 16 135/73 95 Intake and Output 07/01/18 07/01/18 07/02/18 15:59 23:59 07:59 Intake Total 200 / 200 100 / 100 Output Total 200 / 200 Balance 200 / 200 100 / 100 -200 / -200 Intake: Oral 200 / 200 100 / 100 Output: Urine 200 / 200 Other: # Voids 2 1 1 Blood Glucose* 207 226 - Labs CBC & BMP: 07/01/18 01:02 07/01/18 01:02 Labs: Abnormal lab results Hgb 11.0 g/dL (11.5-15.4) L D 07/01/18 01:02 Hct 35.1 % (35.3-44.9) L 07/01/18 01:02 BUN 29 mg/dL (6-20) H 07/01/18 01:02 Creatinine 1.23 mg/dL (0.60-1.20) H 07/01/18 01:02 Est GFR ( Amer) 54 (> 60) L 07/01/18 01:02 Est GFR (Non-Af Amer) 45 (> 60) L 07/01/18 01:02 Glucose 197 mg/dL (70-105) H 07/01/18 01:02 POC Glucose 136 mg/dL (70-99) H 07/01/18 17:12 Calcium 8.5 mg/dL (8.6-10.3) L 07/01/18 01:02 Consult Discharge Plan - Plan Referrals: NONE,PCP [Primary Care Provider] -
[2018-07-02] MEDS: *HR* Glimepiride 4 MG TABLET PO SCH (09:16)
[2018-07-02] MEDS: Insulin LISPRO 300 UNITS/3 ML VIAL SQ SCH ×2 (09:16→13:09)
[2018-07-02] MEDS: Torsemide 20 MG TABLET PO SCH (09:18)
[2018-07-02 10:38] VITALS: BP 128/60
== END 2018-07-02 14:00 | disposition home health service (06) | DRG 302 ==
LOC: SAMDAY 11:06 → 3NENU 17:18
PROVIDERS: ADMIT Orthopaedic Surgery; ATTEND Orthopaedic Surgery